=== PATIENT | male | born 1995 | race Two or more races ===

== ENCOUNTER 2020-04-06 15:46 | Outpatient (REF) | payer MEDICAID, SELFPAY | END 2020-04-06 15:47 | disposition home or self-care (01) | LOC: HO.LAB 15:46 | PROVIDERS: Visit Provider Internal Medicine | DX: Z20.822 Contact with and (suspected) exposure to COVID-19 (principal) | CPT/HCPCS: 36415; C9803; U0003; U0005 ==

== ENCOUNTER 2020-11-18 10:36 | Outpatient (REF) | payer MEDICAID, SELFPAY | END 2020-11-18 10:37 | disposition home or self-care (01) | LOC: HO.LAB 10:36 | PROVIDERS: Visit Provider Internal Medicine | DX: Z20.822 Contact with and (suspected) exposure to COVID-19 (principal) | CPT/HCPCS: C9803; U0003; U0005 ==

== ENCOUNTER 2020-11-29 15:20 | Outpatient (REF) | payer MEDICAID, SELFPAY | END 2020-11-29 15:21 | disposition home or self-care (01) | LOC: HO.LAB 15:20 | PROVIDERS: Visit Provider Internal Medicine | DX: Z20.822 Contact with and (suspected) exposure to COVID-19 (principal) | CPT/HCPCS: C9803; U0003; U0005 ==

== ENCOUNTER 2021-01-26 11:19 | Outpatient (REF) | payer MEDICAID, SELFPAY | END 2021-01-26 11:20 | disposition home or self-care (01) | LOC: HO.LAB 11:19 | PROVIDERS: Visit Provider Internal Medicine | DX: Z20.822 Contact with and (suspected) exposure to COVID-19 (principal) | CPT/HCPCS: C9803; U0003; U0005 ==

== ENCOUNTER 2022-05-21 12:26 | Emergency (ER) | payer MEDICAID, SELFPAY ==
[2022-05-21 12:51] VITALS: BP 123/63; PULSE 78; RESP 18; TEMP 36.8; O2SAT 98; BMI 21.7
--- NOTE | 2022-05-21 12:52 | ED.UPPEXIN ---
HPI - Extremity Injury (Upper) General Chief Complaint: Wound/Laceration <MIKHAIL Hagen - Last Filed: 05/21/22 12:55> Stated Complaint: l index finger laceration <MIKHAIL Hagen - Last Filed: 05/21/22 12:55> Time Seen by Provider: 05/21/22 13:17 <MIKHAIL Hagen - Last Filed: 05/21/22 12:55> Source: patient, RN notes reviewed and old records reviewed <Joaquim Burns - Last Filed: 05/21/22 13:28> Mode of arrival: ambulatory <Joaquim Burns - Last Filed: 05/21/22 13:28> Limitations: no limitations <Joaquim Burns - Last Filed: 05/21/22 13:28> History of Present Illness HPI narrative: 26-year-old male presents for evaluation of a laceration to his left 2nd finger. 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 of razor blades he accidentally cut the tip of his left 2nd finger there has been minimal bleeding he denies any pain to the area <Joaquim Burns - Last Filed: 05/21/22 13:28> Related Data Allergies/Adverse Reactions: Allergies Allergy/AdvReac Type Severity Reaction Status Date / Time No Known Allergies Allergy Unverified 11/05/19 16:21 <MIKHAIL Hagen - Last Filed: 05/21/22 12:55> Review of Systems Integumentary/Breasts: Comments: laceration to left 2nd <Joaquim Burns - Last Filed: 05/21/22 13:28> Neurologic: Denies focal weakness <Joaquim Burns - Last Filed: 05/21/22 13:28> PMFSH Social History Social History: Social History Advance Directives: No Advance Directives Information Provided: No <MIKHAIL Hagen Last Filed: 05/21/22 12:55> Physical Exam Vital Signs: Vital Signs: Last Vital Signs Temp 98.2 F 05/21/22 12:51 Pulse 78 05/21/22 12:51 Resp 18 05/21/22 12:51 BP 123/63 05/21/22 12:51 Pulse Ox 98 05/21/22 12:51 O2 Del Method Room Air 05/21/22 12:51 BMI result Body Mass Index 21.7 <MIKHAIL Hagen - Last Filed: 05/21/22 12:55> Vital Signs: Last Vital Signs Temp 98.2 F 05/21/22 12:51 Pulse 78 05/21/22 12:51 Resp 18 05/21/22 12:51 BP 123/63 05/21/22 12:51 Pulse Ox 98 05/21/22 12:51 O2 Del Method Room Air 05/21/22 12:51 BMI result Body Mass Index 21.7 <Joaquim RodríguezGerman - Last Filed: 05/21/22 13:28> Const: General: healthy appearing, comfortable, no acute distress, alert and awake <Joaquim OSaint Anthony - Last Filed: 05/21/22 13:28> Nutritional Appearance: well nourished <Joaquim OGerman - Last Filed: 05/21/22 13:28> Orientation/consciousness: patient oriented x3 <Joaquim RodríguezSaint Anthony - Last Filed: 05/21/22 13:28> Eyes: Eyelids: Yes eyelids normal <Joaquim OGerman - Last Filed: 05/21/22 13:28> Conjunctivae: conjunctivae normal <Joaquim OSaint Anthony - Last Filed: 05/21/22 13:28> Sclerae: sclerae normal <Joaquim - Last Filed: 05/21/22 13:28> Corneas: corneas normal <Joaquim OGerman - Last Filed: 05/21/22 13:28> Pupils: Equal, round and reactive pupils present <Joaquim OSaint Anthony - Last Filed: 05/21/22 13:28> EOM: EOMs intact bilaterally <Joaquim OGerman - Last Filed: 05/21/22 13:28> Neck: Neck: Yes full ROM <Joaquim OSaint Anthony - Last Filed: 05/21/22 13:28> Skin: Other: patient is small, 1 cm partial-thickness laceration to t.he left 2nd finger tip no active bleeding <Joaquim RodríguezGerman - Last Filed: 05/21/22 13:28> Neuro: General: patient oriented x3 <Joaquimpepper Burns - Last Filed: 05/21/22 13:28> Cranial nerves: Yes CN's II-XII intact bilaterally, Yes Equal, round and reactive pupils present and Yes Bilaterally intact EOM present <Joaquimpepper Griffithy - Last Filed: 05/21/22 13:28> Cognition (Neuro): normal cognition <Joaquimpepper Griffithy - Last Filed: 05/21/22 13:28> Course Course Course Narrative: RME - 26 yo left hand dominant male presents to the ER for evaluation of left index finger laceration. 20 minutes ago accidentally cut it with a razor blade. Cut it small and superficial at the tip. thinks he is UTD on tetanus Plan: most likely will be able to be well approximated w/ glue and steri strip vs a stitch or 2 <MIKHAIL Hagen - Last Filed: 05/21/22 12:55> Medical Decision Making Medical Decision Making MDM Narrative: 26-year-old male presents for evaluation I small laceration. This was done about 20 minutes prior to arrival. Was closed with Dermabond adhesive, see procedure note <Joaquim RichardSaint Anthony - Last Filed: 05/21/22 13:28> Differential Diagnosis laceration Skin tear Puncture wound <Joaquim RamosSaint Anthony - Last Filed: 05/21/22 13:28> Procedures Laceration Laceration 1: Site: hand ( left 2nd finger) <Joaquim RamosSaint Anthony - Last Filed: 05/21/22 13:28> Side (If applicable): left <Joaquim RichardSaint Anthony - Last Filed: 05/21/22 13:28> Size (cm): 1 <Joaquim RamosSaint Anthony - Last Filed: 05/21/22 13:28> Description: linear <Joaquim RamosGerman - Last Filed: 05/21/22 13:28> Depth: simple, single layer <Joaquim RamosSaint Anthony - Last Filed: 05/21/22 13:28> Skin layer closed with: other ( Dermabond adhesive) <Joaquim Burns - Last Filed: 05/21/22 13:28> Discharge Plan Discharge Clinical Impression: Laceration <MIKHAIL Hagen - Last Filed: 05/21/22 12:55> Patient Disposition: Home, Self-Care <MIKHAIL Hagen - Last Filed: 05/21/22 12:55> Instructions: Laceration (ED) <MIKHAIL Hagen - Last Filed: 05/21/22 12:55> Additional Instructions: you had a small laceration to the tip of her left 2nd finger that was closed with skin glue. this should resolve on its own in about 1 week keep the area clean and dry for the rest of the day you may get it wet starting tomorrow <MIKHAIL Hagen - Last Filed: 05/21/22 12:55> Interventions: ED Discharge Assessment Last Done: 05/21/22 13:36 <MIKHAIL Hagen - Last Filed: 05/21/22 12:55> Discharge Date/Time: 05/21/22 13:41 <MIKHAIL Hagen - Last Filed: 05/21/22 12:55>
== END 2022-05-21 13:41 | disposition home or self-care (01) ==
LOC: HO.ED 13:38
PROVIDERS: Emergency Provider Emergency Medicine
DX: S61.412A Laceration without foreign body of left hand, initial encounter (principal); W45.8XXA Other foreign body or object entering through skin, initial encounter; Y93.9 Activity, unspecified; Y92.9 Unspecified place or not applicable; Y99.0 Civilian activity done for income or pay
CPT/HCPCS: 12001; 99282

== ENCOUNTER 2023-07-09 10:46 | Emergency (ER) | payer OTHER, SELFPAY ==
[2023-07-09 11:01] VITALS: BP 137/79; PULSE 70; RESP 16; TEMP 36.6; O2SAT 97; BMI 23.3
--- NOTE | 2023-07-09 12:29 | ED_ITS ---
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 Patient states he had immediate pain on the right side of his neck and right shoulder. He went to bed that night after taking michael e ibuprofen and has had ongoing pain since. He reports pain when looking to the left and palpation of the right lateral neck. He has has pain with full abduction of the right shoulder. He denies hearing any pops or cracks at the time of the injury. He denies any radiation of the pain. No numbness or tingling into the right arm. No headache. He has been taking ibuprofen and using topical [place]-Humphrey intermittently with some brief improvement MD complaint: neck pain, neck injury and upper back pain Onset (ago): day(s) (5) Place: work Radiation: right lateral Severity: moderate Quality: sharp, aching and spasming Duration: progressively worsening Relieving factors: remaining still Exacerbating factors: movement of extremity and movement of neck Context: lifting Associated symptoms: none Treatments prior to arrival: none Related Data Previous Rx's ?Medication ?Instructions ?Recorded cyclobenzaprine 10 mg tablet 10 mg PO TID PRN muscle spasm #14 07/09/23 tabs ibuprofen 600 mg tablet 600 mg PO Q8H PRN pain #14 tabs 07/09/23 lidocaine 5 % topical patch 1 patch topical DAILY #15 ea 07/09/23 Allergies Allergy/AdvReac Type Severity Reaction Status Date / Time No Known Allergies Allergy Verified 07/09/23 11:01 Review of Systems Review of Systems: Yes all other systems are reviewed and are negative PMFSH Social History Social History Advance Directives: No Advance Directives Information Provided: No Physical Exam Vital Signs: Vital Signs: Last Vital Signs Temp 97.9 F 07/09/23 12:36 Pulse 70 07/09/23 12:36 Resp 16 07/09/23 12:36 BP 137/79 07/09/23 12:36 Pulse Ox 97 05/21/24 12:36 O2 Del Method Room Air 05/21/24 12:36 BMI result Body Mass Index 23.3 Appearance: Alert. Oriented X3. No acute distress. HEENT: normal inspection Neck: Normal inspection, no swelling. Trachea midline. Soft tissue tenderness of the right lateral neck with palpable muscle spasm. Pain with left lateral rotation of the head. Superior portion of the trapezius with muscle spasm and tenderness as well. No overlying skin changes. CVS: Normal heart rate and rhythm. Pulses normal. Respiratory: No respiratory distress. Lungs are clear throughout Skin: Skin warm and dry. Normal skin color. Normal skin turgor. No rashes. Extremities: normal inspection of all 4 extremities. No joint swelling. Full range of motion of the right upper extremity with pain upon full abduction. Strength is equal and symmetrical throughout. Nontender right shoulder. Negative empty can test. Neuro: Oriented X 3. No motor deficit. No sensory deficit. Medical Decision Making Medical Decision Making MDM Narrative: 27-year-old male presents to the ER for evaluation of right lateral neck pain extending to the right upper shoulder that started after lifting 5 days ago while at work. exam and clinical presentation today are most consistent with cervical strain and spasm with palpable soft tissue tenderness on exam. will plan to start patient on muscle relaxers, anti-inflammatories, lidocaine patches. We discussed importance of rest, ice, heat, gentle massage and range of motion. Stable for discharge home. Work note provided per request. Patient encouraged follow up with primary care doctor and return precautions were discussed. Differential Diagnosis Differential Diagnoses: The differential diagnosis associated with the presentation includes spasmodic torticollis, cervical strain, atypical migraine, AC joint separation, rotator cuff injury External Record Review External record reviewed: Prior outpatient labs and Prior outpatient radiology Tests considered The following testing was considered but not selected: X-ray of the shoulder was considered however no direct Prescription Management I considered prescription management with: Pain Medication Critical Care Time Critical Care Time Critical Care Time: No Discharge Plan Discharge Clinical Impression: Cervical muscle strain Qualifiers: Encounter type: initial encounter Qualified Code(s): S16.1XXA - Strain of muscle, fascia and tendon at neck level, initial encounter Patient Disposition: Home, Self-Care Instructions: Cervical Sprain (ED) Additional Instructions: Your pain is most likely due to muscle strain and spasm. Work on gentle range of motion of the head and neck along w/ gentle massage to help mobility and improve pain Take medications as prescribed to help with pain and discomfort. Follow up with your Primary Care Doctor If you develop new or worsening symptoms call 911 or come back to the ER for further evaluation. Prescriptions: New lidocaine 5 % adhesive patch,medicated 1 patch topical DAILY Qty: 15 0RF Rx Instructions: leave on most painful area for up to 12 hrs ibuprofen 600 mg tablet 600 mg PO Q8H PRN (Reason: pain) Qty: 14 0RF cyclobenzaprine 10 mg tablet 10 mg PO TID PRN (Reason: muscle spasm) Qty: 14 0RF Referrals: [facility] [Primary Care Provider] - Stand Alone Forms: Work/School Release Interventions: ED Discharge Assessment Last Done: 07/09/23 12:36 Discharge Date/Time: 07/09/23 12:37 Print Language: Mexican
[2023-07-09 12:36] VITALS: BP 137/79; PULSE 70; RESP 16; TEMP 36.6; O2SAT 97
== END 2023-07-09 12:37 | disposition home or self-care (01) ==
PROVIDERS: Emergency Provider Emergency Medicine
DX: S16.1XXA Strain of muscle, fascia and tendon at neck level, initial encounter (principal); X50.0XXA Overexertion from strenuous movement or load, initial encounter; X50.9XXA Other and unspecified overexertion or strenuous movements or postures, initial encounter; Y93.89 Activity, other specified; Y92.63 Factory as the place of occurrence of the external cause; Y99.0 Civilian activity done for income or pay; M54.2 Cervicalgia; M25.511 Pain in right shoulder
CPT/HCPCS: 99282; 99283

== ENCOUNTER 2024-07-16 08:51 | Emergency (ER) | payer MEDICAID, SELFPAY ==
--- NOTE | ~2024-07-16 | CT_ITS ---
EXAMINATION: CT SOFT TISSUE NECK WITH CONTRAST CLINICAL INFORMATION: Left neck pain. COMPARISON: None available. TECHNIQUE: Following the intravenous administration of 60 mL of Omnipaque 350 intravenous contrast, helical imaging was performed in the axial plane with generation of coronal and sagittal reformatted images. This CT examination was performed using dose optimization techniques as appropriate, variously including the following: *Automated exposure control *Adjustment of mA and/or kV according to patient size (this includes techniques or standardized protocols for targeted exams where dose is matched to indication/reason for exam; i.e. extremities or head) *Use of iterative reconstruction technique FINDINGS: Lymph Nodes: -Mild reactive appearing anterior and posterior cervical chain lymphadenopathy. -1.3 cm in short axis left level IIb lymph node also felt to be reactive. This is located directly posterior to the left submandibular gland. Carotid Sheath Structures: -Normal. Salivary Glands: -Normal. Tongue Base/Floor of Mouth: -Normal Mucosal Space: -Hypertrophy of the adenoids. -Hypertrophy of the palate seen tonsils consistent with tonsillitis. There is crypt enhancement. There is no peritonsillar abscess identified. Moderate effacement of the central hypopharyngeal airway. -Mildly prominent lingual tonsils. -Normal epiglottis and aryepiglottic folds. Visceral Space: -Thyroid gland: Normal. -Normal larynx, and true vocal cords. -The trachea is normal. Retropharangeal Space: - Normal. Parapharyngeal Fat Planes: -Normal. Exterior Door Installer Spaces: -Normal. Anterior Cervical Space: -Normal. Imaged Intracranial Contents: -No mass effect, edema, or abnormal enhancement. Cortical and dural venous sinuses are patent. The skull base is normal. Globes and Orbits: -Normal. Paranasal Sinuses/Mastoids/Tympanic Spaces: -Normally aerated bilaterally. Lung Apices and Superior Mediastinal Structures: -Imaged lung apices are clear. -Triangular soft tissue in the superior/anterior mediastinum is consistent with residual thymus. Bony Structures: -No suspicious bone lesions. No fractures. -Normal TM joints. CT/CT soft tissue neck w IV con IMPRESSION: 1. Tonsillitis without evidence of peritonsillar abscess. 2. Reactive left greater than right level 2 lymphadenopathy. 3. Hypertrophy of the adenoids, also likely reactive. Electronically signed by: Christiano Brito MD 07/16/2024 11:01 AM EDT RP
[2024-07-16 09:06] VITALS: BP 126/73; PULSE 66; RESP 18; TEMP 36.8; O2SAT 98; BMI 23.1
[2024-07-16 09:08] VITALS: BP 131/68; PULSE 65; RESP 16; O2SAT 98
--- NOTE | 2024-07-16 09:18 | ED.HA ---
HPI - Headache General Chief Complaint: Headache Stated Complaint: headache Time Seen by Provider: 07/16/24 08:57 History of Present Illness HPI Narrative: Patient is a 28-year-old male presents today with having left-sided headache also having neck pain. Pain is worse with swallowing. Patient is from home. There is no fever no chills. There is no chest pain or shortness of breath. There is no difficulty breathing. There is no difficulty with his voice it is unchanged. The pain has gotten worse over the last 2 days. Came to the ED. There is no fever. Able to bend his neck without any difficulty. Related Data Previous Rx's ?Medication ?Instructions ?Recorded cyclobenzaprine 10 mg tablet 10 mg PO TID PRN muscle spasm #14 07/09/23 tabs ibuprofen 600 mg tablet 600 mg PO Q8H PRN pain #14 tabs 07/09/23 lidocaine 5 % topical patch 1 patch topical DAILY #15 ea 07/09/23 ibuprofen 400 mg tablet 400 mg PO Q6H PRN pain #20 tabs 07/16/24 penicillin V potassium 500 mg 500 mg PO TID 10 days #30 tabs 07/16/24 tablet Allergies Allergy/AdvReac Type Severity Reaction Status Date / Time No Known Allergies Allergy Verified 07/16/24 09:07 Review of Systems Review of Systems: Positive neck pain throat pain PMFSH Past Medical History Attestation statement: The following information was validated with the patient. Social History Social History Advance Directives: No Advance Directives Information Provided: Yes Physical Exam Vital Signs: Vital Signs: Last Vital Signs Temp 98.2 F 07/16/24 09:06 Pulse 80 07/16/24 10:27 Resp 16 07/16/24 10:27 BP 116/62 07/16/24 10:27 Pulse Ox 99 07/16/24 10:27 O2 Del Method Room Air 07/16/24 10:27 BMI result Body Mass Index 23.1 Appearance: Alert. Oriented X3. No acute distress. Eyes: Pupils equal, round and reactive to light. ENT: Mild erythema over the left posterior pharynx. There is minimal swelling. Not touching the uvula. Neck: Normal inspection. Neck supple. No lymph nodes noted. No crepitus CVS: Normal heart rate and rhythm. Pulses normal. Normal S1 and S2 Respiratory: No respiratory distress. Breath sounds normal. No Wheezing. No rales Abdomen: Soft and nontender. No rigidity. No distention. good BS x4 Skin: Skin warm and dry. Normal skin color. Normal skin turgor. Extremities: No lower extremity edema. Neurovascular intact to all extremities. No Lacerations. No Rash Neuro: Oriented X 3. No motor deficit. No sensory deficit. Moving all extermities. No slurred speech Medications Administered Discontinued Medications Generic Name Dose Route Start Last Admin Trade Name Freq PRN Reason Stop Dose Admin Ceftriaxone Sodium 1 gm 07/16/24 09:50 07/16/24 10:35 Ceftriaxone Sodium 1 Gm Vial IVPUSH 07/16/24 09:51 1 gm ONCE ONE Administration Sodium Chloride 1,000 mls @ 999 mls/hr 07/16/24 09:15 07/16/24 09:33 Ns IV 07/16/24 10:15 999 mls/hr .Q1H1M ANURAG Administration Sodium Chloride 1,000 mls @ 999 mls/hr 07/16/24 09:15 07/16/24 09:34 Ns IV 07/16/24 10:15 999 mls/hr .Q1H1M ANURAG Administration Iohexol 100 ml 07/16/24 10:31 07/16/24 10:31 Iohexol 350 Mg/Ml 100 Ml Infus..Btl IV 07/16/24 10:32 60 ml ONCE ONE Administration Ketorolac Tromethamine 15 mg 07/16/24 09:08 07/16/24 09:35 Ketorolac Tromethamine 15 Mg/Ml Vial IVPUSH 07/16/24 09:09 15 mg ONCE ONE Administration Medical Decision Making Medical Decision Making [facility] Narrative: Well-appearing no acute distress question development of early peritonsillar abscess. Versus cellulitis. Pain medication given. IV fluids offered. Will monitor. Patient's strep came back positive. CT scan of the soft tissue neck was read as positive for had tonsillar cellulitis no evidence for peritonsillar abscess. Patient will be treated with 10 days of antibiotics 1st dose of pain medication antibiotics and fluids was given. Symptomatically feels improved. Will discharge home. Patient tolerate p.o.. No change in voice. No difficulty breathing. Differential Diagnosis Differential Diagnoses: The differential diagnosis associated with the presentation includes Peritonsillar abscess, Admission/Observation Consideration of admission/observation: Escalation of care including admission/observation considered Lab Data MDM Lab Attestation statement: I reviewed the patient's lab results. 07/16/24 09:26 07/16/24 09:26 Labs: Lab Results 07/16/24 07/16/24 Range/Units 09:26 10:25 WBC 17.2 H (4.8-10.8) X10*3/uL RBC 4.74 (4.60-5.80) X10*6/uL Hgb 14.9 (14.0-18.0) g/dl Hct 41.5 L (42.0-52.0) % MCV 87.6 (80.0-98.0) fL MCH 31.4 (27.0-33.0) pg MCHC 35.9 (31.0-36.0) g/dl RDW 11.8 (11.0-16.0) % Plt Count 221 (160-400) X10*3/uL MPV 9.8 (9.4-12.4) fL Immature Gran % (Auto) 1.0 H (0.0-0.4) % Neut % (Auto) 83.9 H (45-73) % Lymph % (Auto) 8.3 L (20-40) % [place] % (Auto) 6.5 (2-11) % Eos % (Auto) 0.1 (0-4) % Baso % (Auto) 0.2 (0-2) % Lymph # (Auto) 1.4 (1.2-4.9) X10*3/uL [place] # (Auto) 1.1 (0.1-1.2) X10*3/uL Eos # (Auto) 0.0 (0.0-0.4) X10*3/uL Baso # (Auto) 0.0 (0.0-0.2) X10*3/uL Abs Immat Gran (auto) 0.17 H (0.00-0.03) X10*3/uL Absolute Neuts (auto) 14.4 H (2.0-8.3) x10*3/uL Absolute Nucleated RBC 0.000 (0.0-0.012) X10*3/uL Nucleated RBC % (auto) 0.0 (0.0-0.2) /100WBC Sodium 139 (135-145) mmol/L Potassium 3.6 (3.3-5.1) mmol/L Chloride 107 (96-108) mmol/L Carbon Dioxide 27 (22-29) mmol/L Anion Gap 9 L (12-20) BUN 10 (9-16) mg/dL Creatinine 0.94 (0.5-1.4) mg/dL Estim Creat Clear Calc 125.3 Estimated GFR > 60 Random Glucose 107 (60-115) mg/dL Lactic Acid 0.6 (0.5-2.0) mmol/L Calcium 9.2 (8.4-10.2) mg/dL Total Bilirubin 2.1 H (0.0-1.0) mg/dL Direct Bilirubin 0.5 (0.0-0.5) mg/dL AST 26 (5-37) U/L ALT 23 (0-40) U/L Alkaline Phosphatase 83 (39-117) U/L Total Protein 6.7 (6.5-8.0) g/dL Albumin 4.0 (3.5-5.0) g/dL Urine Color Yellow Urine Appearance Clear Urine pH 6.0 (5.0-9.0) Ur Specific [place] 1.020 (1.005-1.025) Urine Protein 30 (1+) H (Neg-Trace) mg/dL Urine Glucose (UA) Negative (Negative) mg/dL Urine Ketones 15 (Negative) mg/dL Urine Blood Negative (Negative) Urine Nitrite Negative (Negative) Ur Leukocyte Esterase Negative (Negative) Urine RBC 0-2 (0-2) /HPF Urine WBC 0-5 (0-5) /HPF Ur Squamous Epith Cells 0-2 (0-2) /HPF Urine Bacteria None Seen (None Seen) Hyaline Casts 0-2 (0-2) /LPF S. pyogenes GrpA JAZZY Positive A (Negative) Radiology Impression Discussion of test interpretation with radiology: I have reviewed the radiologist's reading. Discharge Plan Discharge Clinical Impression: Acute streptococcal pharyngitis Patient Disposition: Home, Self-Care Instructions: Strep Throat (DC) Prescriptions: New penicillin V potassium 500 mg tablet 500 mg PO TID 10 Days Qty: 30 0RF ibuprofen 400 mg tablet 400 mg PO Q6H PRN (Reason: pain) Qty: 20 0RF No Action lidocaine 5 % adhesive patch,medicated 1 patch topical DAILY Qty: 15 0RF Rx Instructions: leave on most painful area for up to 12 hrs ibuprofen 600 mg tablet 600 mg PO Q8H PRN (Reason: pain) Qty: 14 0RF cyclobenzaprine 10 mg tablet 10 mg PO TID PRN (Reason: muscle spasm) Qty: 14 0RF Referrals: [facility] [Primary Care Provider] - 07/21/24 Print Language: Barbadian
[2024-07-16] MEDS: 0.9 % Sodium Chloride 1,000 ML 999 ML IV ×2 (09:33→09:34)
[2024-07-16] MEDS: Ketorolac Tromethamine 15 MG/ML VIAL IVPUSH (09:35)
[2024-07-16 09:42] LABS: MANUAL DIFF FLAG NO
[2024-07-16 09:43] LABS: Basophils Percent Auto 0.2 % (0-2); Eosinophils Percent Auto 0.1 % (0-4); Hematocrit 41.5 % (42.0-52.0); Hemoglobin 14.9 g/dl (14.0-18.0); Imm Gran Abs Auto 0.17 X10*3/uL (0.00-0.03); Lymphocytes Absolute Auto 1.4 X10*3/uL (1.2-4.9); Lymphocytes Percent Auto 8.3 % (20-40); Mean Corpuscular HGB Conc 35.9 g/dl (31.0-36.0); Mean Corpuscular Hemoglobin 31.4 pg (27.0-33.0); Mean Corpuscular Volume 87.6 fL (80.0-98.0); Mean Platelet Volume 9.8 fL (9.4-12.4); Monocytes Absolute Auto 1.1 X10*3/uL (0.1-1.2); Monocytes Percent Auto 6.5 % (2-11); Neutrophils Absolute Auto 14.4 x10*3/uL (2.0-8.3); Neutrophils Percent Auto 83.9 % (45-73); Platelet Count 221 X10*3/uL (160-400); Red Blood Count 4.74 X10*6/uL (4.60-5.80); Red Cell Distribution Width 11.8 % (11.0-16.0); White Blood Count 17.2 X10*3/uL (4.8-10.8)
[2024-07-16 09:54] LABS: IDNOW Serial# 58CA691E
[2024-07-16 10:00] LABS: Lactic Acid 0.6 mmol/L (0.5-2.0)
[2024-07-16 10:02] LABS: Alanine Aminotransferase 23 U/L (0-40); Alkaline Phosphatase 83 U/L (39-117); Anion Gap 9 (12-20); Aspartate Amino Transferase 26 U/L (5-37); Bilirubin Direct 0.5 mg/dL (0.0-0.5); Bilirubin Total 2.1 mg/dL (0.0-1.0); Blood Urea Nitrogen 10 mg/dL (9-16); Calcium 9.2 mg/dL (8.4-10.2); Carbon Dioxide 27 mmol/L (22-29); Chloride 107 mmol/L (96-108); Creatinine Clr Calc Pharmacy 125.3; Estimated Glomerular Filt Rate > 60; Glucose Random 107 mg/dL (60-115); Potassium 3.6 mmol/L (3.3-5.1); Sodium 139 mmol/L (135-145); Total Protein 6.7 g/dL (6.5-8.0)
[2024-07-16 10:04] LABS: Strep A Nucleic Acid Positive (Negative)
[2024-07-16 10:27] VITALS: BP 116/62; PULSE 80; RESP 16; O2SAT 99
[2024-07-16] MEDS: iohexoL 350 MG/ML 100 ML INFUS..BTL IV (10:31)
[2024-07-16 10:32] LABS: Appearance Urine Clear; Color Urine Yellow; Glucose Urine UA Negative (Negative); Leukocyte Esterase Urine Negative (Negative); Nitrite Urine Negative (Negative); UMIC TRIGGER UACC YES; Urine Blood Negative (Negative); Urine Ketones 15 mg/dL (Negative); Urine Protein 30 (1+) mg/dL (Neg-Trace)
[2024-07-16 10:34] LABS: Bacteria Urine None Seen (None Seen); Hyaline Casts Urine 0-2 /LPF (0-2); RBC Urine 0-2 /HPF (0-2); Squamous Epithelial Cell Urine 0-2 /HPF (0-2); WBC Urine 0-5 /HPF (0-5)
[2024-07-16] MEDS: cefTRIAXone sodium 1 GM VIAL IVPUSH (10:35)
[2024-07-16 11:22] VITALS: BP 109/71; PULSE 70; RESP 14; O2SAT 100
[2024-07-16 11:27] VITALS: BP 109/71; PULSE 70; RESP 14; TEMP 36.8; O2SAT 100
== END 2024-07-16 11:28 | disposition home or self-care (01) ==
PROVIDERS: Emergency Provider Emergency Medicine Emergency Medical Services
DX: J02.0 Streptococcal pharyngitis (principal); R51.9 Headache, unspecified; M54.2 Cervicalgia; Z79.899 Other long term (current) drug therapy
CPT/HCPCS: 70491; 80048; 80076; 81001; 83605; 85025; 87040; 87651; 96361; 96374; 96375; 99284; 99285; J0696; J1885; Q9967

== ENCOUNTER → 2024-07-16 09:05 | Outpatient (BNV) | payer MEDICAID, SELFPAY | PROVIDERS: Emergency Provider Emergency Medicine Emergency Medical Services; Visit Provider Radiology Diagnostic Radiology | DX: J03.90 Acute tonsillitis, unspecified (principal) | CPT/HCPCS: 70491 ==